=== PATIENT | male | born 1980 | race Caucasian/White ===

== ENCOUNTER 2019-07-04 08:15 | Emergency (ER) | payer OTHER ==
[~2019-07-04] VITALS: Ht 175.3 cm; Wt 104.1 kg
[~2019-07-04 08:15] MED LIST: IBUP-1542 PO; PENI500T PO
[2019-07-04 08:18] VITALS: Ht 175.3 cm; Wt 104.1 kg
[2019-07-04] MEDS ORDERED: KETOROLAC 30 MG INJ IV STA (08:53)
[2019-07-04] MEDS ORDERED: METHYLPREDNISOLONE 125 MG INJ IV ONE (09:00)
[2019-07-04] MEDS ORDERED: SOD CHLORIDE 0.9% 1,000 ML IV ONE (09:00)
[2019-07-04 10:53] VITALS: BP 130/78; PULSE 72; RESP 18
== END 2019-07-04 10:56 | disposition home or self-care (01) ==
LOC: FTE 08:15
DX: J02.0 Streptococcal pharyngitis (principal)
CPT/HCPCS: 96361; 96374; 96375; J1885; J2930; J7030; Z7502